=== PATIENT | female | born 1985 | race Two or more races ===

== ENCOUNTER 2019-06-26 02:34 | Inpatient (IN) | payer MEDICAID ==
[~2019-06-26] VITALS: Ht 165.1 cm; Wt 73.0 kg
[2019-06-26] VITALS (7 sets, daily range): BP systolic 104–128; BP diastolic 54–80
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
--- NOTE | 2019-06-26 03:03 | NUR ---
ED Nurse Note: IV line established. Blood and urine specimen collected and sent to lab.
[2019-06-26] MEDS ORDERED: Activated Charcoal 50gm/240ml Btl ORAL ONE (03:15)
[2019-06-26 04:12] LABS: APPEARANCE,URINE CLEAR; BILIRUBIN, URINE NEGATIVE (NEGATIVE); COLOR,URINE PALE YELLOW; GLUCOSE, URINE (UA) NEGATIVE (NEGATIVE); KETONES,URINE NEGATIVE (NEGATIVE); NITRITE,URINE NEGATIVE (NEGATIVE); PH,URINE 7 (4.5-8.0); PROTEIN,URINE NEGATIVE (NEGATIVE); UROBILINOGEN,URINE NORMAL MG/DL (0.0-1.0)
[2019-06-26 04:22] LABS: BASOPHILS % (AUTO) 0.7 % (0.0-2.0); EOSINOPHILS % (AUTO) 0.9 % (0.0-3.0); HEMATOCRIT 41.2 % (42.0-52.0); HEMOGLOBIN 14.2 G/DL (14.2-18.0); MEAN CORPUSCULAR VOLUME 88 FL (80-99); MONOCYTES % (AUTO) 5.1 % (1.0-10.0); NEUTROPHILS % (AUTO) 68.3 % (45.0-75.0); PLATELET COUNT 319 K/UL (150-450); RED BLOOD COUNT 4.66 M/UL (4.70-6.10); RED CELL DISTRIBUTION WIDTH 11.1 % (11.6-14.8); WHITE BLOOD COUNT 14.4 K/UL (4.8-10.8)
[2019-06-26 04:25] LABS: ANION GAP 10 mmol/L (5-15); BLOOD UREA NITROGEN 13 mg/dL (7-18); CARBON DIOXIDE 24 MMOL/L (21-32); CHLORIDE 104 MMOL/L (98-107); CREATININE 0.5 MG/DL (0.55-1.30); POTASSIUM 4.9 MMOL/L (3.5-5.1); SODIUM 138 MMOL/L (136-145)
[2019-06-26 04:27] LABS: LEUKOCYTE ESTERASE ,URINE TRACE (NEGATIVE)
[2019-06-26 04:29] LABS: ALANINE AMINOTRANSFERASE 28 U/L (12-78); ALBUMIN 3.9 G/DL (3.4-5.0); ALKALINE PHOSPHATASE 87 U/L (46-116); ASPARTATE AMINO TRANSFERASE 40 U/L (15-37); BILIRUBIN,TOTAL 0.3 MG/DL (0.2-1.0)
--- NOTE | 2019-06-26 04:55 | NUR ---
ED Nurse Note: Spoke with Heriberto from Poison Control was ordered to repeat tylenol level and liver function test at 0600. If Tylenol level is >160 and AST/ ALT are still elevated, give Mucomyst IV or po.
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
[2019-06-26 06:33] LABS: ANION GAP 12 mmol/L (5-15); BLOOD UREA NITROGEN 9 mg/dL (7-18); CALCIUM 8.7 MG/DL (8.5-10.1); CARBON DIOXIDE 20 MMOL/L (21-32); CHLORIDE 109 MMOL/L (98-107); CREATININE 0.6 MG/DL (0.55-1.30); POTASSIUM 3.8 MMOL/L (3.5-5.1); SODIUM 141 MMOL/L (136-145)
[2019-06-26 06:38] LABS: ALANINE AMINOTRANSFERASE 22 U/L (12-78); ALBUMIN 3.5 G/DL (3.4-5.0); ALKALINE PHOSPHATASE 85 U/L (46-116); ASPARTATE AMINO TRANSFERASE 11 U/L (15-37); BILIRUBIN,TOTAL 0.2 MG/DL (0.2-1.0)
--- NOTE | 2019-06-26 07:10 | NUR ---
ED Nurse Note: Report given to Mame HINOJOSA. Endorsed plan of care.
--- NOTE | 2019-06-26 08:24 | NUR ---
ER Nurse Note: Pt remains at baseline. VSS, no signs of resp distress. Pt asleep, calm, does not show pain. Will conitnue to montior.
--- NOTE | 2019-06-26 11:42 | NUR ---
ER Nurse Note: Report given to ASHISH Tavares in tele for continuity of care. All orders completed per MD orders.
--- NOTE | 2019-06-26 12:00 | NUR ---
NURSE NOTES: Patient's brought up from ER by monika with assistance of ER nurse and watch repair technician. Nurse report given by ASHISH Vilchis. Patient's in stable condition, ambulates to bed, eyes open spontaneously, breathing regular and no shortness of breath, AO x3, Chinese speaking only. Unable to sign belonging list document d/t ER nurse has not brought up the admission package yet. IV is saline locked, patent and asymptomatic. cafeteria monitor is on. ID band checked. Bed low and locked, call light within reach, side rails x 3, bed alarm is armed. Can Nayak, at bedside per Dr. Sorto's order. Notified MD that patient is on the floor . MD aware and will put admission orders himself. Vital signs are stable: BP 97.7, HR 80, RR 20, BP 128/77, O2 97%. Will continue to monitor closely.
[2019-06-26] MEDS ORDERED: Albuterol/Ipratropium 3ml neb HHN PRN (12:15)
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
--- NOTE | 2019-06-26 19:27 | NUR ---
HAND-OFF: Report given to MARTINA Cohn. Patient's stable, plan of care endorsed.
--- NOTE | 2019-06-26 20:00 | NUR ---
NURSE NOTES: RECEIVED PATIENT LYING IN BED, AWAKE, ALERT/ORIENTED X4, [place] CITIZEN SPEAKING, DENIES PAIN. NO SIGNS AND SYMPTOMS OF ACUTE CARDIO RESPIRATORY DISTRESS/SHORTNESS OF BREATH, ON HEELER. IV INTACT, ASYMPTOMATIC, TOLERATING IV FLUIDS, NO REDNESS/SWELLING NOTED. CONTINENT OF B/B, BATHROOM PRIVILEGES. SIDE RAILS UP X2 FOR MOBILITY, BED IN LOWEST POSITION FOR SAFETY, ENCOURAGED PATIENT TO UTILIZE CALL LIGHT FOR ASSISTANCE, VERBALIZED UNDERSTANDING. FREQUENT ROUNDING FOR SAFETY/NEEDS. CONTINUE WITH CURRENT PLAN OF CARE. NAD.
[2019-06-27] VITALS: BP 114/74
[2019-06-27 04:00] VITALS: BP 114/70
--- NOTE | 2019-06-27 06:29 | NUR ---
NURSE NOTES: RESTED WELL, NO SIGNIFICANT CHANGE OF CONDITION NOTED THROUGHOUT THE NIGHT. SAFETY MAINTAINED. NAD.
--- NOTE | 2019-06-27 07:20 | NUR ---
HAND-OFF: Report given to ASHISH MARES.
--- NOTE | 2019-06-27 07:22 | NUR ---
NURSE NOTES: Nurse report given by MARTINA Cohn. Patient's sleeping in bed but easily awake, no s/s of distress or SOB, no complains of pain, AO x 4, [place] speaking only. IV is running fluid, no s/s of infiltration or tenderness. Bed low and locked, call light within reach, side rails x 2, monitor tech is on. Neuro checked, no signs of suicidal thoughts. All needs met at this time. Will continue to monitor closely.
[2019-06-27 08:00] VITALS: BP 127/75
[2019-06-27 08:25] LABS: ALANINE AMINOTRANSFERASE 19 U/L (12-78); ALBUMIN 3.4 G/DL (3.4-5.0); ALKALINE PHOSPHATASE 64 U/L (46-116); ANION GAP 9 mmol/L (5-15); ASPARTATE AMINO TRANSFERASE 16 U/L (15-37); BILIRUBIN,TOTAL 0.4 MG/DL (0.2-1.0); BLOOD UREA NITROGEN 6 mg/dL (7-18); CALCIUM 8.8 MG/DL (8.5-10.1); CARBON DIOXIDE 24 MMOL/L (21-32); CHLORIDE 107 MMOL/L (98-107); CREATININE 0.5 MG/DL (0.55-1.30); POTASSIUM 3.8 MMOL/L (3.5-5.1); SODIUM 140 MMOL/L (136-145)
[2019-06-27 08:31] LABS: BILIRUBIN,DIRECT < 0.1 MG/DL (0.0-0.3)
[2019-06-27 12:00] VITALS: BP 106/67
--- NOTE | 2019-06-27 15:55 | Discharge Summary ---
Discharge Summary Hospital Course Date of Admission Jun 26, 2019 at 11:51 Date of Discharge Admitting Diagnosis tylenol toxicity HPI Keily Ngo is a 33 year old female who was admitted on Jun 26, 2019 at 11: 51 for Tylenol Toxicity Hospital Course in the ED, she was given IVF and charcoal and monitored 1 day in the hospital. abdominal pain, nausea rresolved with time. LFT's were normal throughout. Stable for d/c home today. Discharge Medications Medication Profile: No Active Prescriptions or Reported Meds Discharge Condition Upon Discharge: stable Discharge Vital Signs Last Vital Signs Date Time Temp Pulse Resp B/P (MAP) Pulse Ox O2 Delivery O2 Flow Rate FiO2 06/27/19 12:00 71 06/27/19 12:00 98.1 20 106/67 (80) 98 06/27/19 09:00 Room Air Discharge Disposition Patient was discharged to Rangel Sorto M.D. Jun 27, 2019 15:55
--- NOTE | 2019-06-27 16:09 | NUR ---
NURSE NOTES: Patient's discharged per Dr. Sorto's order. Patient's stable , ambulates well, AO x 4, denies pain, no s/s of distress or SOB. Patient's belonging list and discharge documents went over with patient, with the help of translation by frisian speaking nurse, Maude RN at bedside. Patient acknowledged regarding the discharge information and aware to seek for psychologist help. Documents signed by patient at bedside. IV discarded properly, ID band removed, warp spinner removed. Patient's picked up by her mother and daughter in private vehicle, escorted out by [employer]. Charge nurse, Fe and radio/tv technician aware.
== END 2019-06-27 16:14 | disposition home or self-care (01) | DRG 817 ==
LOC: EDBD 02:34 → EMR 04:35 → EDSEX 04:35 → EDBEDREQ 11:36 → 2E 11:51
DX: T39.1X2A Poisoning by 4-Aminophenol derivatives, intentional self-harm, initial encounter (principal); R10.9 Unspecified abdominal pain; Y92.009 Unspecified place in unspecified non-institutional (private) residence as the place of occurrence of the external cause
CPT/HCPCS: 36415; 80053; 80307; 81003; 81025; 82248; 85025; 96361; 96374; 96375; 99285; G0480; J2405; J7030